=== PATIENT | male | born 2000 | race Hispanic/Latino ===

== ENCOUNTER 2021-04-03 06:02 | Inpatient (IN) | payer OTHER, SELFPAY ==
[2021-04-03 06:53] LABS: #Lymphocytes 1.2 thou/uL (1.20-3.40); #Monocytes 0.8 thou/uL (0.11-0.59); #Neutrophils 13.6 thou/uL (1.40-6.50); %Basophils 0.2 % (0.0-1.0); %Eosinophils 0.2 % (0.0-10.0); %Lymphocytes 7.6 % (28.0-48.0); %Monocytes 4.8 % (0.0-4.0); %Neutrophils 87.3 % (31.0-61.0); Hemoglobin 15.3 g/dL (14.0-18.0); Mean Corpuscular HGB CONC 35.1 g/dL (32.0-36.0); Mean Corpuscular Hemoglobin 30.2 pg (25.0-35.0); Mean Platelet Volume 8.3 fL (7.4-10.4); Platelet Count 309 thou/uL (130-400); RBC Distribution Width 11.6 % (11.5-14.5); Red Blood Cell (RBC) Count 5.07 mill/uL (4.00-5.20); White Blood Cell (WBC) Count 15.5 thou/uL (4.8-10.8)
[2021-04-03] MEDS ORDERED: Morphine 4 MG/ML VIAL ONE (07:08)
[2021-04-03 07:10] LABS: ALT (SGPT) 37 U/L (8-55); AST (SGOT) 54 U/L (5-34); Albumin 4.7 g/dL (3.5-5.0); Alcohol 122 mg/dL (Less than 10); Alkaline Phosphatase 99 U/L (50-130); Anion Gap 18 mmol/L (10-20); BUN (Urea Nitrogen) 7 mg/dL (8.9-20.6); Bilirubin, Total 0.4 mg/dL (0.2-1.2); CK (CPK) 2389 U/L (30-200); Calc. Creatinine Clearance 0 mL/min (70-130); Calcium 8.7 mg/dL (7.8-10.44); Carbon Dioxide 21 mmol/L (22-29); Chloride 105 mmol/L (98-107); Globulin 2.8 g/dL (2.4-3.5); Glucose 105 mg/dL (70-105); Lipase 31 U/L (8-78); Potassium 3.7 mmol/L (3.5-5.1); Protein, Total 7.5 g/dL (6.0-8.3); Sodium 140 mmol/L (136-145)
[2021-04-03] MEDS ORDERED: PROPOFOL 20 ML ONE (08:27)
[2021-04-03] MEDS ORDERED: Iopamidol-370 76% 500 ML 1 ML ONE (09:45)
[2021-04-03] MEDS ORDERED: Dextrose 50% Abboject 50 ML SYRINGE SLOW IVP PRN (10:12)
[2021-04-03] MEDS ORDERED: Morphine 2 MG/ML VIAL SLOW IVP PRN (10:12)
[2021-04-03] MEDS ORDERED: Dextrose 5% in Water 1,000 ML IV PRN (10:12)
[2021-04-03] MEDS ORDERED: Ondansetron PF 4 MG/2 ML Vial IVP PRN (10:12)
[2021-04-03] MEDS ORDERED: traMADol HCl 50 MG TAB PO PRN (10:12)
[2021-04-03] MEDS ORDERED: Cyclobenzaprine 10 MG TAB PO PRN (10:12)
[2021-04-03] MEDS ORDERED: hydrALAZINE 20 MG/ML VIAL SLOW IVP PRN (10:12)
[2021-04-03] MEDS ORDERED: Ondansetron ODT 4 MG TAB PO PRN (10:12)
[2021-04-03] MEDS ORDERED: Ibuprofen 800 MG TAB PO PRN (10:12)
[2021-04-03] MEDS: Acetaminophen 325 MG TAB PO SCH ×3 (10:38→17:34)
[2021-04-03] MEDS: Sodium Bicarbonate 150 MEQ in Dextrose 5% in Water 1,000 ML IV SCH ×2 (11:58→21:03)
[2021-04-03 12:15] VITALS: BMI 27.6
[2021-04-03] MEDS: traMADol HCl 50 MG TAB PO PRN (17:38)
[2021-04-03] MEDS: Famotidine 20 MG TAB PO SCH (21:03)
[2021-04-04] MEDS: Acetaminophen 325 MG TAB PO SCH ×5 (00:38→23:26)
[2021-04-04 06:48] LABS: #Eosinphils 0.1 thou/uL (0.0-0.7); #Lymphocytes 2.2 thou/uL (1.20-3.40); #Monocytes 0.9 thou/uL (0.11-0.59); #Neutrophils 5.3 thou/uL (1.40-6.50); %Basophils 0.6 % (0.0-1.0); %Lymphocytes 25.3 % (28.0-48.0); %Monocytes 11.1 % (0.0-4.0); Hemoglobin 14.4 g/dL (14.0-18.0); Mean Corpuscular HGB CONC 35.5 g/dL (32.0-36.0); Mean Corpuscular Hemoglobin 30.9 pg (25.0-35.0); Mean Corpuscular Volume 86.9 fL (78.0-98.0); Mean Platelet Volume 8.4 fL (7.4-10.4); Platelet Count 245 thou/uL (130-400); RBC Distribution Width 11.9 % (11.5-14.5); Red Blood Cell (RBC) Count 4.67 mill/uL (4.00-5.20); White Blood Cell (WBC) Count 8.5 thou/uL (4.8-10.8)
[2021-04-04 07:15] LABS: Anion Gap 13 mmol/L (10-20); BUN (Urea Nitrogen) 5 mg/dL (8.9-20.6); Calc. Creatinine Clearance 188 mL/min (70-130); Calcium 8.6 mg/dL (7.8-10.44); Carbon Dioxide 25 mmol/L (22-29); Chloride 101 mmol/L (98-107); Glucose 104 mg/dL (70-105); Magnesium 1.7 mg/dL (1.7-2.2); Phosphorus 2.4 mg/dL (2.3-4.7); Potassium 3.8 mmol/L (3.5-5.1); Sodium 135 mmol/L (136-145)
[2021-04-04 07:29] LABS: CK (CPK) 7289 U/L (30-200)
[2021-04-04] MEDS: Famotidine 20 MG TAB PO SCH ×2 (09:09→20:02)
[2021-04-04] MEDS: traMADol HCl 50 MG TAB PO PRN ×2 (09:10→16:32)
[2021-04-04] MEDS: Sodium Bicarbonate 150 MEQ in Dextrose 5% in Water 1,000 ML IV SCH (09:15)
[2021-04-04] MEDS: Lactated Ringer's 1,000 ML IV SCH ×3 (15:12→23:27)
[2021-04-05] MEDS: Acetaminophen 325 MG TAB PO SCH ×2 (05:17→12:23)
[2021-04-05] MEDS: Lactated Ringer's 1,000 ML IV SCH (06:16)
[2021-04-05 06:27] LABS: CK (CPK) 6251 U/L (30-200)
[2021-04-05 06:36] LABS: Anion Gap 10 mmol/L (10-20); BUN (Urea Nitrogen) 6 mg/dL (8.9-20.6); Calc. Creatinine Clearance 193 mL/min (70-130); Calcium 8.6 mg/dL (7.8-10.44); Carbon Dioxide 28 mmol/L (22-29); Chloride 100 mmol/L (98-107); Glucose 92 mg/dL (70-105); Magnesium 1.8 mg/dL (1.7-2.2); Phosphorus 3.2 mg/dL (2.3-4.7); Potassium 3.9 mmol/L (3.5-5.1); Sodium 134 mmol/L (136-145)
[2021-04-05] MEDS ORDERED: Magnesium Sulfate 4 GM in Sodium Chloride 0.9% 250 ML 250 ML IVPB SCH (07:00)
[2021-04-05] MEDS: Famotidine 20 MG TAB PO SCH (09:13)
[2021-04-05 15:39] VITALS: BP 123/65; TEMP 98.8
== END 2021-04-05 16:03 | disposition home or self-care (01) | DRG 964 ==
LOC: ERS 06:02 → SURG A 08:12
PROVIDERS: ADMIT Surgery; ATTEND Surgery
PROC: 0SSBXZZ Reposition Left Hip Joint, External Approach (ICD-10-PCS; principal; 2021-04-03)
DX: T79.6XXA Traumatic ischemia of muscle, initial encounter (principal); S06.339A Contusion and laceration of cerebrum, unspecified, with loss of consciousness of unspecified duration, initial encounter; S73.015A Posterior dislocation of left hip, initial encounter; F10.129 Alcohol abuse with intoxication, unspecified; Y90.5 Blood alcohol level of 100-119 mg/100 ml; R40.2412 Glasgow coma scale score 13-15, at arrival to emergency department; V47.5XXA Car driver injured in collision with fixed or stationary object in traffic accident, initial encounter; Y92.410 Unspecified street and highway as the place of occurrence of the external cause
CPT/HCPCS: 27250; 36415; 70450; 71260; 72125; 72170; 74177; 80048; 80053; 80307; 82550; 83690; 83735; 84100; 85025; 96374; 99152; G0390; J2270; J2704; J3475; J7050; J7070; Q9967